=== PATIENT | male | born 1975 | race Caucasian/White ===

== ENCOUNTER 2021-03-24 14:23 | Emergency (ER) | payer OTHER ==
[~2021-03-24] VITALS: Ht 180.3 cm; Wt 74.5 kg
[2021-03-24] MEDS ORDERED: FAMOTIDINE 20 MG/2 ML IVPush ONE (15:00)
[2021-03-24] MEDS ORDERED: SODIUM CHLORIDE FLUSH 10ML SYR IVF ONE (15:00)
[2021-03-24] MEDS ORDERED: ONDANSETRON 2MG/ML, 2ML IVPush ONE (15:00)
[2021-03-24] MEDS ORDERED: MAALOX/HYOSCYAMINE/LIDOCAINE 45 ML BTL PO ONE (15:00)
[2021-03-24] MEDS ORDERED: SODIUM CHLORIDE 0.9% 1,000ML IVBOLUS ONE ×2 (15:00→19:00)
[2021-03-24 15:41] LABS: BASOPHILS % (AUTO) 0 % (0-1); EOSINOPHILS % (AUTO) 1 % (1-7); LYMPHOCYTES % (AUTO) 8 % (22-44); MEAN CORPUSCULAR HEMOGLOBIN 28.3 pg (27.5-34.5); MONOCYTES % (AUTO) 8 % (2-9); NEUTROPHILS % (AUTO) 83 % (42-75); PLATELET COUNT 311 x10^3/uL (130-400); RED BLOOD COUNT 5.46 x10^6/uL (4.38-5.82); RED CELL DISTRIBUTION WIDTH 13.2 % (9.4-14.8)
[2021-03-24 15:50] LABS: ALBUMIN 4.1 g/dL (3.4-5.0); ANION GAP 3 mmol/L (5-15); CALCIUM 9.4 mg/dL (8.5-10.1); CHLORIDE 104 mmol/L (98-107)
[2021-03-24 15:54] LABS: ALANINE AMINOTRANSFERASE 66 U/L (12-78); ALKALINE PHOSPHATASE 140 U/L (45-117); BILIRUBIN,TOTAL 0.6 mg/dL (0.2-1.0); CREATININE 1.03 mg/dL (0.7-1.3); TOTAL PROTEIN 8.9 g/dL (6.4-8.2)
[2021-03-24 16:27] VITALS: BP 165/101
--- NOTE | 2021-03-24 17:15 | NUR ---
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
[2021-03-24] MEDS ORDERED: ONDANSETRON 2MG/ML, 2ML ONE (17:23)
[2021-03-24] MEDS ORDERED: FAMOTIDINE 20 MG/2 ML ONE (17:24)
[2021-03-24] MEDS ORDERED: MAALOX/HYOSCYAMINE/LIDOCAINE 45 ML BTL ONE (17:24)
--- NOTE | 2021-03-24 17:43 | NUR ---
PIV PLACED. MEDS ADMIN PER SEP. IVF RUNNING.
--- NOTE | 2021-03-24 17:55 | NUR ---
PT REFUSED TO GO TO CT WITHOUT TALKING TO DR HUYNH. JOSAFAT NOTIFIED.
--- NOTE | 2021-03-24 18:15 | NUR ---
PT REFUSED TO BE CONNECTED TO BP, "I'M LAYING ON MY SIDE". PT CONNECTED TO PULSEOX. CALL LIGHT IN REACH.
--- NOTE | 2021-03-24 18:55 | NUR ---
ERMD AT BEDSIDE. PT CONCERNED ABOUT RADIATION FROM CT WITH CONTRAST, HAS HAS MULTIPLE OVER THE LAST YEAR. PT REFUSING CT.
[2021-03-24] MEDS ORDERED: KETOROLAC 30 MG/1 ML IVPush ONE (19:00)
[2021-03-24] MEDS ORDERED: KETOROLAC 30 MG/1 ML ONE (19:05)
--- NOTE | 2021-03-24 19:15 | NUR ---
2ND LITER IVF RUNNING. 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 PT AWARE OF NEED FOR URINE SAMPLE.
--- NOTE | 2021-03-24 20:02 | NUR ---
TASK RN: PT RESTING CALMLY IN SIDE LYING POSITION, EVEN/REGULAR RESPIRATIONS NOTED. SPO2 >90% ON RA.
--- NOTE | 2021-03-24 20:22 | NUR ---
TASK RN: PT TO RESTROOM TO ATTEMPT UA WO SUCCESS. DENIES S/S OF URINE RETENTION, "I DONT FEEL BLOCKED, IT JUST ISN'T READY TO COME OUT YET"
--- NOTE | 2021-03-24 20:34 | NUR ---
ALL RESULTS ARE BACK AT THIS TIME. IVF COMPLETED. PT STATES FEELS BETTER AFTER FLUIDS. CHART UP FOR RECHECK.
[2021-03-24] MEDS ORDERED: ACETAMINOPHEN 325 MG TABLET ONE (20:56)
[2021-03-24] MEDS ORDERED: ACETAMINOPHEN 325 MG TABLET PO ONE (21:00)
--- NOTE | 2021-03-24 21:29 | NUR ---
GENERAL STUDIES PROGRAM CHAIR PER MAR.
== END 2021-03-24 21:58 | disposition home or self-care (01) ==
LOC: ED 20:23
DX: K86.1 Other chronic pancreatitis (principal); Z87.891 Personal history of nicotine dependence
CPT/HCPCS: 36415; 80053; 80320; 83690; 85025; 96361; 96374; 96375; 99284; J1885; J2405; J7030; G0480